=== PATIENT | female | born 1995 | race Hispanic/Latino ===

== ENCOUNTER 2017-11-19 15:57 | Emergency (ER) | payer SELFPAY ==
[2017-11-19] MEDS ORDERED: DEXAMETHASONE SOD PHOSPHATE 10MG/ML 1ML VIAL ONE (16:31)
[2017-11-19] MEDS ORDERED: KETOROLAC TROMETHAMINE 60 MG/2 ML VIAL ONE (16:31)
== END 2017-11-19 16:48 | disposition home or self-care (01) ==
LOC: EDH 15:57
DX: M79.672 Pain in left foot (principal)
CPT/HCPCS: 96372 ×2; 99284; J1100; J1885

== ENCOUNTER 2018-11-28 17:05 | Emergency (ER) | payer SELFPAY ==
[2018-11-28] MEDS ORDERED: KETOROLAC TROMETHAMINE 60 MG/2 ML VIAL ONE (17:42)
[2018-11-28] MEDS ORDERED: DEXAMETHASONE SOD PHOSPHATE 10MG/ML 1ML VIAL ONE (17:42)
== END 2018-11-28 18:35 | disposition home or self-care (01) ==
LOC: EDH 17:05
DX: J03.90 Acute tonsillitis, unspecified (principal)
CPT/HCPCS: 81025; 87880; 96372 ×2; 99284; J1100; J1885

== ENCOUNTER 2019-06-29 06:57 | Emergency (ER) | payer SELFPAY ==
[2019-06-29] MEDS ORDERED: IPRATROPIUM/ALBUTEROL SULFATE 3 ML SOLUTION IH ONE (07:27)
[2019-06-29 07:39] LABS: RAPID GROUP A STREP NEGATIVE (NEGATIVE)
[2019-06-29] MEDS ORDERED: IBUPROFEN 600 MG TABLET ONE (07:44)
== END 2019-06-29 08:04 | disposition home or self-care (01) ==
LOC: EDH 06:57
DX: J20.9 Acute bronchitis, unspecified (principal); R05 Cough
CPT/HCPCS: 71046; 81025; 87804; 87880; 94640

== ENCOUNTER 2019-09-17 14:27 | Emergency (ER) | payer SELFPAY ==
[2019-09-17 15:15] LABS: RAPID GROUP A STREP NEGATIVE (NEGATIVE)
[2019-09-17] MEDS ORDERED: IPRATROPIUM/ALBUTEROL SULFATE 3 ML SOLUTION IH ONE (15:25)
[2019-09-17 15:47] LABS: HCG,QUAL RESULT NEGATIVE (NEGATIVE)
[2019-09-17 15:52] LABS: APPEARANCE,URINE Cloudy (CLEAR); BILIRUBIN,URINE Negative (NEGATIVE); COLOR,URINE Yellow (YELLOW); GLUCOSE, URINE (UA) Negative (NEGATIVE); KETONES,URINE 15 mg/dL (NEGATIVE); LEUKOCYTE ESTERASE ,URINE Small (NEGATIVE); NITRATE,URINE Negative (NEGATIVE); OCCULT BLOOD,URINE Large (NEGATIVE); PH,URINE 5.5 (5.0-8.0); PROTEIN,URINE POS 1+ mg/dL (NEGATIVE)
[2019-09-17 15:54] LABS: BACTERIA,URINE Few /HPF (None Seen)
== END 2019-09-17 16:29 | disposition home or self-care (01) ==
LOC: EDH 14:27
DX: J20.9 Acute bronchitis, unspecified (principal)
CPT/HCPCS: 71045; 81001; 81025; 87804; 87880; 94640

== ENCOUNTER 2022-02-06 16:19 | Emergency (ER) | payer OTHER ==
[~2022-02-06] VITALS: Ht 147.3 cm; Wt 68.0 kg
[2022-02-06 16:41] VITALS: BP 111/67
[2022-02-06 16:47] LABS: BASOPHILS % (AUTO) 0.5 % (0.0-5.0); EOSINOPHILS % (AUTO) 0.1 % (0.0-8.0); HEMATOCRIT 41.8 % (36-48); MEAN CORPUSCULAR HEMOGLOBIN 32.1 pg (27.0-33.0); MEAN CORPUSCULAR HGB CONC 34.4 g/dL (32.0-36.0); MEAN CORPUSCULAR VOLUME 93.1 fL (79-99); MONOCYTES % (AUTO) 4.7 % (3.0-13.0); NEUTROPHILS % (AUTO) 84.7 % (40.0-77.0); PLATELET COUNT (AUTO) 239 K/uL (130-400); RED BLOOD CELL COUNT(AUTO) 4.49 MIL/uL (4.00-5.50); RED CELL DISTRIBUTION WIDTH 12.2 % (11.0-15.5); WHITE BLOOD COUNT (AUTO) 14.8 K/uL (4.8-10.8)
[2022-02-06 16:51] LABS: APPEARANCE,URINE CLOUDY (CLEAR); BILIRUBIN,URINE NEGATIVE (NEGATIVE); COLOR,URINE ORANGE (YELLOW); GLUCOSE, URINE (UA) NEGATIVE (NEGATIVE); KETONES,URINE 15 mg/dL (NEGATIVE); LEUKOCYTE ESTERASE ,URINE NEGATIVE (NEGATIVE); NITRATE,URINE NEGATIVE (NEGATIVE); OCCULT BLOOD,URINE LARGE (NEGATIVE); PROTEIN,URINE 100 mg/dL (NEGATIVE); UROBILINOGEN,URINE 0.2 mg/dL (0.2-1.0)
[2022-02-06 16:56] LABS: POTASSIUM 3.5 mmol/L (3.5-5.1)
[2022-02-06 16:56] LABS: HCG,QUAL RESULT NEGATIVE (NEGATIVE)
[2022-02-06] MEDS ORDERED: 0.9%NACL 1000ML 1,000 ML IV SCH (17:00)
[2022-02-06] MEDS ORDERED: ONDANSETRON 4MG INJ IVP ONE (17:00)
[2022-02-06 17:01] LABS: ALBUMIN 3.9 g/dL (3.5-5.0); BILIRUBIN,TOTAL 0.2 mg/dL (0.2-1.0); TOTAL PROTEIN, SERUM 7.5 g/dL (6.0-8.3)
[2022-02-06 17:31] LABS: BACTERIA,URINE Rare /HPF (None Seen); RBC,URINE >100 /HPF (0-1)
[2022-02-06] MEDS ORDERED: LORAZEPAM 2 MG/ML 1 ML VIAL IVP ONE (18:00)
== END 2022-02-06 18:42 | disposition home or self-care (01) ==
LOC: EDH 16:19
DX: U07.1 COVID-19 (principal); B34.9 Viral infection, unspecified; E86.0 Dehydration; F41.9 Anxiety disorder, unspecified
CPT/HCPCS: 36415; 71045; 80053; 81001; 81025; 85025; 87635; 87804 ×2; 96361; 96374; 96375; 99284; C9803; J2060; J2405; J7030